=== PATIENT | female | born 1990 | race American Indian/Alaskan Native ===

== ENCOUNTER 2020-12-23 17:06 | Emergency (ER) | payer MEDICAID ==
[2020-12-23 17:19] VITALS: BP 118/69
--- NOTE | 2020-12-23 17:19 | Emergency Department Report ---
ED General Adult HPI - General Chief complaint: Nausea/Vomiting/Diarrhea Stated complaint: 17WKS PREG/DIZZY/CHEST PAIN Time Seen by Provider: 12/23/20 17:14 Source: patient Mode of arrival: Ambulatory Limitations: No Limitations - History of Present Illness Initial comments: Patient is a 30-year-old female who presents emergency room with complaints of lower abd discmofort began yesterday. states she has associated dizziness/lightheaded, nausea, overheated. she denies any v/d, no fever, no vaginal bleeding, no cp, no sob, no headache, numbness, weakness, vision changes, leg swelling. pt states she is approximately 17-18 weeks . she states her green chain puller is at [facility], last saw them 4 weeks ago, states she has an appointment tomorrow (12/24/2020). no pmhx. allergy:pitocin, hives/itching. /P:2/A:0 - Related Data Previous Rx's Medication Instructions Recorded Last Taken Type Meclizine [Antivert] 25 mg PO Q8HR PRN #10 tablet 12/23/20 Unknown Rx Allergies Allergy/AdvReac Type Severity Reaction Status Date / Time No Known Allergies Allergy Unverified 12/23/20 17:12 ED Review of Systems ROS: Stated complaint: 17WKS PREG/DIZZY/CHEST PAIN Other details as noted in HPI Comment: All other systems reviewed and negative ED Past Medical Hx - Past Medical History Previous Medical History?: No - Surgical History Past Surgical History?: No - Medications Home Medications: Home Medications Medication Instructions Recorded Confirmed Last Taken Type Meclizine [Antivert] 25 mg PO Q8HR PRN #10 tablet 12/23/20 Unknown Rx ED Physical Exam - General Limitations: No Limitations General appearance: alert, in no apparent distress - Head Head exam: Present: atraumatic, normocephalic - Eye Eye exam: Present: normal appearance - ENT ENT exam: Present: mucous membranes moist - Respiratory Respiratory exam: Present: normal lung sounds bilaterally. Absent: respiratory distress, wheezes, rales, rhonchi, stridor, chest wall tenderness, accessory muscle use, decreased breath sounds, prolonged expiratory - Cardiovascular Cardiovascular Exam: Present: regular rate, normal rhythm, normal heart sounds. Absent: systolic murmur, diastolic murmur, rubs, gallop - GI/Abdominal GI/Abdominal exam: Present: soft, normal bowel sounds. Absent: distended, tenderness, guarding, rebound, rigid - Neurological Exam Neurological exam: Present: alert, oriented X3, CN II-XII intact, normal gait. Absent: motor sensory deficit - Psychiatric Psychiatric exam: Present: normal affect, normal mood - Skin Skin exam: Present: warm, dry, intact ED Course Vital Signs 12/23/20 17:10 Temperature 97.5 F L Pulse Rate 81 Respiratory 20 Rate Blood Pressure 118/69 O2 Sat by Pulse 100 Oximetry ED Medical Decision Making - Lab Data Result diagrams: 12/23/20 17:57 12/23/20 17:57 Lab Results 12/23/20 12/23/20 12/23/20 Range/Units 17:13 17:57 17:57 WBC 8.5 (4.5-11.0) K/mm3 RBC 3.79 (3.65-5.03) M/mm3 Hgb 12.3 (10.1-14.3) gm/dl Hct 35.7 (30.3-42.9) % MCV 94 (79-97) fl MCH 32 (28-32) pg MCHC 34 (30-34) % RDW 14.0 (13.2-15.2) % Plt Count 239 (140-440) K/mm3 Lymph % (Auto) 10.7 L (13.4-35.0) % [place] % (Auto) 6.4 (0.0-7.3) % Eos % (Auto) 0.7 (0.0-4.3) % Baso % (Auto) 0.5 (0.0-1.8) % Lymph # (Auto) 0.9 L (1.2-5.4) K/mm3 [place] # (Auto) 0.5 (0.0-0.8) K/mm3 Eos # (Auto) 0.1 (0.0-0.4) K/mm3 Baso # (Auto) 0.0 (0.0-0.1) K/mm3 Seg Neutrophils % 81.7 H (40.0-70.0) % Seg Neutrophils # 6.9 (1.8-7.7) K/mm3 Sodium 132 L (137-145) mmol/L Potassium 3.8 (3.6-5.0) mmol/L Chloride 100.7 (98-107) mmol/L Carbon Dioxide 24 (22-30) mmol/L Anion Gap 11 mmol/L BUN 6 L (7-17) mg/dL Creatinine 0.5 L (0.6-1.2) mg/dL Estimated GFR > 60 ml/min BUN/Creatinine Ratio 12 % Glucose 96 (65-100) mg/dL POC Glucose 121 H (70-105) mg/dL Calcium 8.5 (8.4-10.2) mg/dL Magnesium 1.80 (1.7-2.3) mg/dL Total Bilirubin 0.30 (0.1-1.2) mg/dL AST 19 (5-40) units/L ALT 10 (7-56) units/L Alkaline Phosphatase 58 (35-129) units/L Total Creatine Kinase 66 (30-135) units/L Total Protein 6.3 (6.3-8.2) g/dL Albumin 3.4 L (3.9-5) g/dL Albumin/Globulin Ratio 1.2 % TSH (0.270-4.200) mlU/mL Urine Color (Yellow) Urine Turbidity (Clear) Urine pH (5.0-7.0) Ur Specific [place] (1.003-1.030) Urine Protein (Negative) mg/dL Urine Glucose (UA) (Negative) mg/dL Urine Ketones (Negative) mg/dL Urine Blood (Negative) Urine Nitrite (Negative) Urine Bilirubin (Negative) Urine Urobilinogen (<2.0) mg/dL Ur Leukocyte Esterase (Negative) Urine WBC (Auto) (0.0-6.0) /HPF Urine RBC (Auto) (0.0-6.0) /HPF U Epithel Cells (Auto) (0-13.0) /HPF Urine Mucus /HPF 12/23/20 12/23/20 Range/Units 17:57 18:32 WBC (4.5-11.0) K/mm3 RBC (3.65-5.03) M/mm3 Hgb (10.1-14.3) gm/dl Hct (30.3-42.9) % MCV (79-97) fl MCH (28-32) pg MCHC (30-34) % RDW (13.2-15.2) % Plt Count (140-440) K/mm3 Lymph % (Auto) (13.4-35.0) % [place] % (Auto) (0.0-7.3) % Eos % (Auto) (0.0-4.3) % Baso % (Auto) (0.0-1.8) % Lymph # (Auto) (1.2-5.4) K/mm3 [place] # (Auto) (0.0-0.8) K/mm3 Eos # (Auto) (0.0-0.4) K/mm3 Baso # (Auto) (0.0-0.1) K/mm3 Seg Neutrophils % (40.0-70.0) % Seg Neutrophils # (1.8-7.7) K/mm3 Sodium (137-145) mmol/L Potassium (3.6-5.0) mmol/L Chloride (98-107) mmol/L Carbon Dioxide (22-30) mmol/L Anion Gap mmol/L BUN (7-17) mg/dL Creatinine (0.6-1.2) mg/dL Estimated GFR ml/min BUN/Creatinine Ratio % Glucose (65-100) mg/dL POC Glucose (70-105) mg/dL Calcium (8.4-10.2) mg/dL Magnesium (1.7-2.3) mg/dL Total Bilirubin (0.1-1.2) mg/dL AST (5-40) units/L ALT (7-56) units/L Alkaline Phosphatase (35-129) units/L Total Creatine Kinase (30-135) units/L Total Protein (6.3-8.2) g/dL Albumin (3.9-5) g/dL Albumin/Globulin Ratio % TSH 0.749 (0.270-4.200) mlU/mL Urine Color [place] (Yellow) Urine Turbidity Slightly-cloudy (Clear) Urine pH 6.0 (5.0-7.0) Ur Specific [place] 1.026 (1.003-1.030) Urine Protein 30 mg/dl (Negative) mg/dL Urine Glucose (UA) Neg (Negative) mg/dL Urine Ketones Neg (Negative) mg/dL Urine Blood Neg (Negative) Urine Nitrite Neg (Negative) Urine Bilirubin Neg (Negative) Urine Urobilinogen 2.0 (<2.0) mg/dL Ur Leukocyte Esterase Tr (Negative) Urine WBC (Auto) 1.0 (0.0-6.0) /HPF Urine RBC (Auto) 3.0 (0.0-6.0) /HPF U Epithel Cells (Auto) 6.0 (0-13.0) /HPF Urine Mucus 2+ /HPF - EKG Data EKG shows normal: sinus rhythm, axis, intervals, QRS complexes, ST-T waves Rate: normal - Radiology Data Radiology results: report reviewed Ordering Physician: TITO CLEMENTS Date of Service: 12/23/20 Procedure(s): US OB >= 14 weeks Fetus Accession Number(s): [id number] cc: TITO CLEMENTS ULTRASOUND OBSTETRIC COMPLETE INDICATION / CLINICAL INFORMATION: 18 weeks with abdominal pain. Clinical Gestational Age (GA) in weeks.days: 18.2 TECHNIQUE: Transabdominal. COMPARISON: None. FINDINGS: NUMBER: Single PRESENTATION: PLACENTA: anterior and free of the os. MATERNAL ADNEXA: No significant abnormality. AMNIOTIC FLUID VOLUME: normal AMNIOTIC FLUID INDEX (DEMETRIO) in cm (if measured): Not measured ANATOMY: organs (including the bladder, stomach, kidneys, heart, umbilical cord, diaphragm, cord insertion, spine and intracranial structures) are visualized and show no significant abnormality with the following exception(s): The kidneys are not well seen. MEASUREMENTS: - Biparietal Diameter = 4.4 cm = 19.2 weeks.days - Head Circumference = 15.8 cm = 18.5 weeks.days - Abdominal Circumference = 14.7 cm = 20.0 weeks.days - Femur Length = 2.7 cm = 18.2 weeks.days - Estimated Weight (in grams, if calculated): 277 - Heart Rate (beats per minute): 136 ADDITIONAL FINDINGS: None. PERCENTILE ESTIMATED WEIGHT (if calculated): Not calculated. AVERAGE ULTRASOUND AGE (AUA) in weeks.days = 19.1 IMPRESSION: 1. Single intrauterine with AUA of 19.1 weeks.days 2. No significant sonographic abnormality. Signer Name: Yves Paez MD Signed: 12/23/2020 6:09 PM Workstation Name: [id number] Transcribed By: BRANDI Dictated By: Yves Paez MD Electronically Authenticated By: Yves Paez MD Signed Date/Time: 12/23/201808 DD/ 05 TD/TT: - Medical Decision Making Patient is a 30-year-old female who presents emergency room with complaints of lower abd discmofort began yesterday. states she has associated dizziness/lightheaded, nausea, overheated. she denies any v/d, no fever, no v aginal bleeding, no cp, no sob, no headache, numbness, weakness, vision changes, leg swelling. pt states she is approximately 17-18 weeks . she states her green chain puller is at [facility], last saw them 4 weeks ago, states she has an appointment tomorrow (12/24/2020). no pmhx. allergy:pitocin, hives/itching. /P:2/A:0. vitals are normal. No abdominal tenderness on exam, no focal neuro deficits. OB US: 1. Single intrauterine with AUA of 19.1 weeks.days 2. No significant sonographic abnormality. Labs are stable. UA is within normal limits. EKG is within normal limits. No significant dehydration, no hypotension. Symptoms could be related to progressing symptoms. She has an upcoming appointment with her PATTERN DUPLICATOR tomorrow, advised to keep her appointment. Patient given meclizine while in the emergency department with improvement in symptoms. She is able to tolerate p.o. intake. She has no elevated blood pressure, no signs of preeclampsia. PERC criteria negative for PE, PE unlikely. No signs of arrhythmia on EKG. No significant dehydration, no significant electrolyte abnormality, TSH is normal. Discussed all results with patient. Discussed the importance of follow-up. Patient given prescription for meclizine. Advised patient Please take medication as prescribed. Increase your water intake over the next several days. Follow-up with your primary care doctor. Follow-up with your PATTERN DUPLICATOR. Please keep your appointment with your PATTERN DUPLICATOR. Return to emergency room any new or symptoms. Critical care attestation.: If time is entered above; I have spent that time in minutes in the direct care of this critically ill patient, excluding procedure time. ED Disposition Clinical Impression: Nausea, Dizziness, Lower abdominal pain Qualifiers: Weeks of gestation: 19 weeks Qualified Code(s): Z3A.19 - 19 weeks gestation of Disposition: DC-01 TO HOME OR SELFCARE Is pt being admited?: No Does the pt Need Aspirin: No Condition: Stable Instructions: Abdominal Pain During , Dizziness Additional Instructions: Please take medication as prescribed. Increase your water intake over the next several days. Follow-up with your primary care doctor. Follow-up with your PATTERN DUPLICATOR. Please keep your appointment with your PATTERN DUPLICATOR. Return to emergency room any new or symptoms. Prescriptions: Meclizine [Antivert] 25 mg PO Q8HR PRN #10 tablet PRN Reason: dizziness/nausea Referrals: HAYES FRANCOIS [Other] - 2-3 Days your, green chain puller [Other] - 2-3 Days Time of Disposition: 18:55 Print Language: GREENLANDIC
[2020-12-23 18:07] LABS: Basophils % (Auto) 0.5 % (0.0-1.8); Eosinophils # (Auto) 0.1 K/mm3 (0.0-0.4); Eosinophils % (Auto) 0.7 % (0.0-4.3); Hematocrit 35.7 % (30.3-42.9); Hemoglobin 12.3 gm/dl (10.1-14.3); Lymphocytes # (Auto) 0.9 K/mm3 (1.2-5.4); Lymphocytes % (Auto) 10.7 % (13.4-35.0); Mean Corpuscular HGB Conc 34 % (30-34); Mean Corpuscular Volume 94 fl (79-97); Monocytes # (Auto) 0.5 K/mm3 (0.0-0.8); Monocytes % (Auto) 6.4 % (0.0-7.3); Platelet Count 239 K/mm3 (140-440); Red Blood Count 3.79 M/mm3 (3.65-5.03)
--- NOTE | 2020-12-23 18:14 | Ultrasound Report ---
ULTRASOUND OBSTETRIC COMPLETE INDICATION / CLINICAL INFORMATION: 18 weeks with abdominal pain. Clinical Gestational Age (GA) in weeks.days: 18.2 TECHNIQUE: Transabdominal. COMPARISON: None. FINDINGS: NUMBER: Single PRESENTATION: PLACENTA: anterior and free of the os. MATERNAL ADNEXA: No significant abnormality. AMNIOTIC FLUID VOLUME: normal AMNIOTIC FLUID INDEX (DEMETRIO) in cm (if measured): Not measured ANATOMY: organs (including the bladder, stomach, kidneys, heart, umbilical cord, diaphragm, cord inserti on, spine and intracranial structures) are visualized and show no significant abnormality with the fo llowing exception(s): The kidneys are not well seen. MEASUREMENTS: - Biparietal Diameter = 4.4 cm = 19.2 weeks.days - Head Circumference = 15.8 cm = 18.5 weeks.days - Abdominal Circumference = 14.7 cm = 20.0 weeks.days - Femur Length = 2.7 cm = 18.2 weeks.days - Estimated Weight (in grams, if calculated): 277 - Heart Rate (beats per minute): 136 ADDITIONAL FINDINGS: None. PERCENTILE ESTIMATED WEIGHT (if calculated): Not calculated. AVERAGE ULTRASOUND AGE (AUA) in weeks.days = 19.1 IMPRESSION: 1. Single intrauterine with AUA of 19.1 weeks.days 2. No significant sonographic abnormality. Signer Name: Yves Paez MD Signed: 12/23/2020 6:09 PM Workstation Name: [id number]
[2020-12-23 18:22] LABS: Alanine Aminotransferase 10 units/L (7-56); Albumin 3.4 g/dL (3.9-5); BUN/Creatinine Ratio 12; Blood Urea Nitrogen 6 mg/dL (7-17); Calcium 8.5 mg/dL (8.4-10.2); Hemolysis Index 25
[2020-12-23 18:49] LABS: Bilirubin,Urine NEG (Negative); Blood,Urine NEG (Negative); Color,Urine Amber (Yellow); Mucus,Urine 2+ /HPF
[2020-12-23] MEDS ORDERED: MECLIZINE 25 MG TAB PO ONE (18:53)
== END 2020-12-23 19:56 | disposition home or self-care (01) ==
LOC: ED 17:06
DX: O26.892 Other specified pregnancy related conditions, second trimester (principal); R10.30 Lower abdominal pain, unspecified; R42 Dizziness and giddiness; R11.0 Nausea; Z79.899 Other long term (current) drug therapy; Z3A.19 19 weeks gestation of pregnancy
CPT/HCPCS: 36415; 76805; 80053; 81001; 82550; 82962; 83735; 84443; 85025; 93005